=== PATIENT | male | born 1930 | race Caucasian/White ===

== ENCOUNTER 2018-02-27 19:13 | Emergency (ER) | payer BC, MEDICARE ==
[~2018-02-27] VITALS: Ht 172.7 cm; Wt 75.7 kg
--- NOTE | 2018-02-27 19:18 | NUR ---
Dr. Hahn at bedside for MSE.
--- NOTE | 2018-02-27 19:32 | NUR ---
Xray at bedside.
[2018-02-27 19:38] LABS: BASOPHILS % (AUTO) 0.4 % (0.0-2.0); EOSINOPHILS # (AUTO) 0.2 K/uL (0.0-0.7); EOSINOPHILS % (AUTO) 2.3 % (0.0-7.0); HEMATOCRIT 35.8 % (36.7-47.1); HEMOGLOBIN 12.4 g/dL (12.5-16.3); LYMPHOCYTES % (AUTO) 13.5 % (20.5-51.5); MEAN CORPUSCULAR HEMOGLOBIN 33.9 uug (23.8-33.4); MEAN CORPUSCULAR HGB CONC 35 g/dL (32.5-36.3); MEAN CORPUSCULAR VOLUME 97.6 fL (73.0-96.2); MONOCYTES # (AUTO) 1.1 K/uL (2.0-10.0); MONOCYTES % (AUTO) 14.4 % (0.0-11.0); NEUTROPHILS # (AUTO) 5.2 K/uL (1.8-8.9); NEUTROPHILS % (AUTO) 69.4 % (38.5-71.5); PLATELET COUNT (AUTO) 227 K/uL (152-348); RED BLOOD CELL COUNT(AUTO) 3.67 MIL/uL (4.06-5.63); WHITE BLOOD COUNT (AUTO) 7.5 K/uL (3.6-10.2)
[2018-02-27 19:44] LABS: CARBON DIOXIDE 28 mmol/L (21-32); CREATININE 1.1 mg/dL (0.6-1.3); GLUCOSE 127 mg/dL (74-106); UREA NITROGEN, BLOOD 22 mg/dL (7-18)
[2018-02-27 19:47] LABS: CHLORIDE 100 mmol/L (98-107); POTASSIUM 4.3 mmol/L (3.5-5.1)
--- NOTE | 2018-02-27 20:15 | NUR ---
Pt out of ER for CT.
--- NOTE | 2018-02-27 20:19 | NUR ---
Report given to Katiuska
--- NOTE | 2018-02-27 20:30 | NUR ---
Pt back to ER from CT.
--- NOTE | 2018-02-27 20:38 | NUR ---
Patient does not wish to proceed with medical care recommended by Dr. Hahn. Patient given information related to possible complications, up to and including , which could occur as a result of leaving the hospital at this time. Patient verbalizes understanding of risks involved due to leaving against medical advice. Patient has signed AMA form.
--- NOTE | 2018-02-27 21:19 | NUR ---
Pt out of ER via wheelchair, assisted patient transfer to vehicle, no falls noted, no acute signs of distress, VSS, all belongings taken, to be driven by via private vehicle.
[2018-02-27 21:21] VITALS: BP 144/81
== END 2018-02-27 21:21 | disposition left against medical advice (07) ==
LOC: ER 19:18
DX: S63.255A Unspecified dislocation of left ring finger, initial encounter (principal); S01.01XA Laceration without foreign body of scalp, initial encounter; R55 Syncope and collapse; W01.198A Fall on same level from slipping, tripping and stumbling with subsequent striking against other object, initial encounter; Y93.89 Activity, other specified; Y92.89 Other specified places as the place of occurrence of the external cause; Y99.8 Other external cause status
CPT/HCPCS: 12002; 26770; 36415; 70450; 71045; 73140 ×2; 80048; 84484; 85025; 93005; 99284; J3490; 70030-TC; A4663